=== PATIENT | female | born 1960 | race Caucasian/White ===

== ENCOUNTER 2017-09-13 19:09 | Emergency (ER) | payer MEDICAID ==
[~2017-09-13] VITALS: Ht 167.6 cm; Wt 64.2 kg
[2017-09-13] MEDS ORDERED: SODIUM CHLORIDE 0.9% 1,000 ML IV ONE (19:48)
[2017-09-13] MEDS ORDERED: SODIUM CHLORIDE 0.9% 1,000ML IVBOLUS ONE (20:00)
[2017-09-13] MEDS ORDERED: SODIUM CHLORIDE FLUSH 10ML SYR IVF ONE (20:00)
[2017-09-13] MEDS ORDERED: ONDANSETRON 2MG/ML, 2ML IVPush ONE (20:00)
[2017-09-13 20:23] LABS: HEMATOCRIT 45.7 % (34.6-47.8); WHITE BLOOD COUNT 9.6 x10^3/uL (3.4-10)
[2017-09-13 20:34] LABS: ASPARTATE AMINO TRANSFERASE 53 U/L (15-37); BLOOD UREA NITROGEN 14 mg/dL (7-18)
[2017-09-13] MEDS ORDERED: HYDROmorphone 2 MG/ML, 1ML ONE (20:55)
[2017-09-13] MEDS ORDERED: ONDANSETRON 2MG/ML, 2ML ONE (20:55)
[2017-09-13] MEDS ORDERED: [UNRECOGNIZED DRUG - OTHER] SC (21:15)
[2017-09-13] MEDS ORDERED: LISI5TAB7 PO (21:15)
[2017-09-13] MEDS ORDERED: LEVO75TA59 PO (21:15)
[2017-09-13] MEDS ORDERED: INSULIN SHORT ACTING SC (21:15)
[2017-09-13] MEDS ORDERED: CEFTRIAXONE PMX 1GM/50ML 50 ML IVPB ONE (21:30)
[2017-09-13] MEDS: HYDROmorphone 1 MG/ML, 1ML IVPush PRN ×2 (21:44→22:03)
[2017-09-13] MEDS ORDERED: CEFTRIAXONE PMX 1GM/50ML 50 ML ONE (21:55)
[2017-09-13 22:57] VITALS: BP 118/60
== END 2017-09-13 22:56 | disposition home or self-care (01) ==
LOC: ED 22:22
DX: N30.00 Acute cystitis without hematuria (principal); E11.9 Type 2 diabetes mellitus without complications; E03.9 Hypothyroidism, unspecified; Z90.49 Acquired absence of other specified parts of digestive tract
CPT/HCPCS: 36415; 74176; 80053; 81001; 83605; 83690; 84484; 85025; 85610; 85730; 87040; 87077; 87086; 93005; 96365; 96375; 99285; J0696; J1170; J2405; J7030; 87186

== ENCOUNTER 2018-07-11 00:33 | Emergency (ER) | payer MEDICAID ==
[~2018-07-11] VITALS: Ht 167.6 cm; Wt 58.9 kg
[~2018-07-11 00:33] MED LIST: INSULIN SHORT ACTING SC; LEVO75TA59 PO; LISI5TAB7 PO; [UNRECOGNIZED DRUG - OTHER] SC
[2018-07-11] MEDS ORDERED: ACETAMINOPHEN 500 MG TABLET ONE (00:57)
[2018-07-11] MEDS ORDERED: ACETAMINOPHEN 500 MG TABLET PO ONE (01:00)
[2018-07-11 01:05] VITALS: BP 132/83
== END 2018-07-11 01:32 | disposition home or self-care (01) ==
LOC: ED 01:13
DX: G89.11 Acute pain due to trauma (principal); M79.642 Pain in left hand; I48.91 Unspecified atrial fibrillation; E03.9 Hypothyroidism, unspecified; E11.9 Type 2 diabetes mellitus without complications; Z87.891 Personal history of nicotine dependence; W22.8XXA Striking against or struck by other objects, initial encounter; Y93.89 Activity, other specified; Y92.098 Other place in other non-institutional residence as the place of occurrence of the external cause; Y99.8 Other external cause status
CPT/HCPCS: 99284

== ENCOUNTER 2018-09-22 20:21 | Emergency (ER) | payer MEDICAID ==
[~2018-09-22] VITALS: Ht 167.6 cm; Wt 57.0 kg
[2018-09-22] MEDS ORDERED: SODIUM CHLORIDE 0.9% 1,000ML IVBOLUS ONE (21:30)
[2018-09-22 21:39] LABS: MICROSCOPIC AUTO
[2018-09-22 21:45] LABS: CULTURE INDICATED? NO
[2018-09-22 21:52] LABS: RAPID INFLUENZA A POSITIVE (Negative); RAPID INFLUENZA B Negative (Negative)
[2018-09-22 21:53] LABS: BASOPHILS # (AUTO) 0.01 x10^3/uL (0-0.1); BASOPHILS % (AUTO) 0 % (0-1); EOSINOPHILS % (AUTO) 0 % (1-7); LYMPHOCYTES # (AUTO) 1.67 x10^3/uL (1-3.4); LYMPHOCYTES % (AUTO) 40 % (22-44); MD NO; MEAN CORPUSCULAR HEMOGLOBIN 31.5 pg (27.0-34.8); MEAN CORPUSCULAR HGB CONC 34.4 g/dL (32.4-35.8); MEAN CORPUSCULAR VOLUME 91.4 fL (80-100); MEAN PLATELET VOLUME 10.1 fL (7.4-10.4); MONOCYTES # (AUTO) 0.36 x10^3/uL (0.2-0.8); MONOCYTES % (AUTO) 9 % (2-9); NEUTROPHILS # (AUTO) 2.14 x10^3/uL (1.8-6.8); NEUTROPHILS % (AUTO) 51 % (42-75); PLATELET COUNT 194 x10^3/uL (130-400); RED BLOOD COUNT 4.48 x10^6/uL (3.82-5.3); RED CELL DISTRIBUTION WIDTH 13.2 % (9.6-15.2)
[2018-09-22 21:57] LABS: ALANINE AMINOTRANSFERASE 47 U/L (12-78); ALBUMIN 2.4 g/dL (3.4-5.0); ANION GAP 10 mmol/L (5-15); CALCIUM 7.9 mg/dL (8.5-10.1); CHLORIDE 96 mmol/L (98-107); CREATININE 1.13 mg/dL (0.55-1.02)
[2018-09-22 21:58] LABS: PH, VENOUS 7.378 pH (7.320-7.420)
[2018-09-22 21:59] LABS: ALKALINE PHOSPHATASE 126 U/L (45-117); BILIRUBIN,TOTAL 0.2 mg/dL (0.2-1.0); TOTAL PROTEIN 6.1 g/dL (6.4-8.2)
[2018-09-22] MEDS ORDERED: KETOROLAC 30 MG/1 ML IVPush ONE (22:00)
[2018-09-22 22:09] LABS: ACETONE, SERUM Moderate(40mg/dL) mg/dL (Negative)
[2018-09-22] MEDS ORDERED: KETOROLAC 30 MG/1 ML ONE (22:16)
[2018-09-22] MEDS ORDERED: INSULIN LISPRO 100 UNITS/ML, PEN ONE (22:16)
[2018-09-22] MEDS ORDERED: INSULIN REGULAR 100 UNITS/ML, 3ML VIAL IVPush ONE (22:30)
[2018-09-22 22:33] VITALS: BP 107/64
== END 2018-09-22 23:32 | disposition home or self-care (01) ==
LOC: ED 23:16
DX: J09.X2 Influenza due to identified novel influenza A virus with other respiratory manifestations (principal); E11.65 Type 2 diabetes mellitus with hyperglycemia; I10 Essential (primary) hypertension; Z87.891 Personal history of nicotine dependence
CPT/HCPCS: 36415; 71045; 80053; 81001; 82010; 82803; 82962; 83690; 85025; 87400; 93005; 96361; 96374; 96375; 99284; J1885; J7030